=== PATIENT | female | born 1960 | race Caucasian/White ===

== ENCOUNTER 2019-04-18 13:36 | Inpatient (IN) | payer OTHER ==
--- NOTE | 2019-04-18 13:45 | PDOC ---
Rapid Medical Evaluation Time Seen by Provider: 04/18/19 13:44 Medical Evaluation: Allergies Allergy/AdvReac Type Severity Reaction Status Date / Time No Known Allergies Allergy Verified 08/29/15 08:47 04/18/19 13:44 I have performed a brief in-person evaluation of this patient. The patient presents with a chief complaint of: vaginal bleeding after starting Lovenox- recent dx of uterine CA and PE Pertinent physical exam findings: deferred I have ordered the following: labs, urine The patient will proceed to the ED for further evaluation. Discharge Disposition - Diagnosis Vaginal bleeding - Referrals - Patient Instructions - Post Discharge Activity
--- NOTE | 2019-04-18 14:56 | PDOC ---
History of Present Illness - General History Source: Patient - History of Present Illness Initial Comments: 04/18/19 14:47 58y/o F hx of uterine adenocarcinoma ,recently diagnosed P.E and ulcerative colitis s/p colon resection, presents to the ED with vaginal bleeding. She has had on/off vaginal bleeding over the last few weeks. She had a sudden increase today where she soaked a single pad in 15mins and had blood in the toilet bowl. She has had a vaginal biopsy, hysteroscopy and endometrial biopsy within the last 3 weeks. She was placed on Lovenox last week due to p.e in the left lung. she currently denies abdominal pain,constipation,chest pain or sob. 04/18/19 16:35 <Moe Jackson - Last Filed: 04/18/19 19:09> <Sandra Cain - Last Filed: 04/20/19 22:14> - General Chief Complaint: Vaginal Bleeding Stated Complaint: VAGINAL BLEEDING Time Seen by Provider: 04/18/19 13:44 Past History - Past Medical History Asthma: Yes Cardiac Disorders: Yes (MVP) COPD: No GI Disorders: Yes (COLITIS, PEPTIC ULCER) Other medical history: UTERINE CA, PE - Surgical History GI Surgery: Yes (LARGE BOWEL RESECTION) - Immunization History Immunization Up to Date: Yes - Suicide/Smoking/Psychosocial Hx Smoking History: Never smoked Hx Alcohol Use: No Drug/Substance Use Hx: No Substance Use Type: None <Moe Jackson - Last Filed: 04/18/19 19:09> <Sandra Cain - Last Filed: 04/20/19 22:14> - Past Medical History Allergies/Adverse Reactions: Allergies Allergy/AdvReac Type Severity Reaction Status Date / Time No Known Allergies Allergy Verified 04/18/19 13:44 Home Medications: Ambulatory Orders Enoxaparin Sodium [Lovenox] 60 mg SQ BID 04/18/19 Potassium Citrate [Potassium Citrate ER] 5 meq PO BID 04/18/19 Review of Systems - Review of Systems All Other Systems: Reviewed and Negative <Moe Jackson - Last Filed: 04/18/19 19:09> *Physical Exam - Vital Signs Last Vital Signs Temp Pulse Resp BP Pulse Ox 98.4 F 110 H 18 122/74 98 04/18/19 13:46 04/18/19 13:46 04/18/19 13:46 04/18/19 13:46 04/18/19 13:46 - Physical Exam General Appearance: Yes: Nourished, Appropriately Dressed, Apparent Distress Respiratory/Chest: positive: Lungs Clear, Normal Breath Sounds. negative: Respiratory Distress, Accessory Muscle Use, Labored Respiration, Rapid RR, Rales , Wheezing Cardiovascular: positive: Regular Rhythm, Regular Rate, S1, S2. negative: JVD Female Pelvic Exam: positive: vaginal bleeding, other (large clots at the vulva. vaginal vault filled with blood. cervical os not visualised.) Gastrointestinal/Abdominal: positive: Normal Bowel Sounds, Soft, Other. negative: Guarding, Rebound, Tenderness Integumentary: positive: Normal Color, Dry, Warm Neurologic: positive: Fully Oriented, Alert, Normal Response <Moe Jackson - Last Filed: 04/18/19 19:09> - Vital Signs Last Vital Signs Temp Pulse Resp BP Pulse Ox 97.9 F 97 H 18 108/64 99 04/20/19 13:43 04/20/19 13:43 04/20/19 12:00 04/20/19 13:43 04/20/19 12:00 <Sandra Cain - Last Filed: 04/20/19 22:14> ED Treatment Course - LABORATORY CBC & Chemistry Diagram: 04/18/19 14:33 04/18/19 14:33 <Moe Jackson - Last Filed: 04/18/19 19:09> - LABORATORY CBC & Chemistry Diagram: 04/20/19 13:55 04/18/19 14:33 - ADDITIONAL ORDERS Additional order review: 04/18/19 04/18/19 20:01 14:33 RBC 3.33 L 3.73 MCV 88.0 88.3 MCHC 33.4 33.3 RDW 14.5 14.3 MPV 8.5 9.3 Neutrophils % 67.7 66.7 Lymphocytes % 22.7 23.3 Monocytes % 8.2 7.7 Eosinophils % 0.9 1.1 Basophils % 0.5 1.2 - Medications Given in the ED: ED Medications Discontinued Medications Generic Name Dose Route Start Last Admin Trade Name Freq PRN Reason Stop Dose Admin Acetaminophen 650 mg 04/18/19 20:21 04/20/19 10:21 Tylenol - PO 650 mg Q6H PRN Administration FEVER Sodium Chloride 1,000 ml 04/18/19 18:17 04/18/19 18:25 Normal Saline - IV 04/18/19 18:18 1,000 ml ONCE ONE Administration <Sandra Cain - Last Filed: 04/20/19 22:14> Medical Decision Making - Medical Decision Making 04/18/19 16:08 58y/o F with endometrial adenocarcinoma, recently diagnosed PE on anticoagulation, presents to the ED with increased bleeding of 4 hrs duration. Labs Ordered/Imaging pt/ptt (12.3/33.6)within reference ranges inr= 1.04 Hgb= 11 Hct=32.9 bleeding not likely due to anti-coagulation. TVUS ordered for further evaluation. 04/18/19 18:20 Repeat vitals done: HR 108, BP 120/76. Given IV fluids 1000cc.Pt. reassessed at this time. she has soaked through 3 pads since arrival in the ED approx 3-4hrs ago. 04/18/19 18:[address] Graf contacted for further management instruction. information assoc service reached. Dr. Graf currently in a procedure will call back. <Moe Jackson - Last Filed: 04/18/19 19:09> *DC/Admit/Observation/Transfer <Moe Jackson - Last Filed: 04/18/19 19:09> - Discharge Dispostion Decision to Admit order: Yes <Sandra Cain - Last Filed: 04/20/19 22:14> Diagnosis at time of Disposition: Vaginal bleeding - Discharge Dispostion Condition at time of disposition: Fair
[2019-04-18 15:08] LABS: BASO % 1.2 % (0-2.0); EOS % 1.1 % (0-4.5); HEMATOCRIT 32.9 % (32.4-45.2); LYMPH % 23.3 % (8-40); MCH 29.4 pg (25.7-33.7); MCHC 33.3 g/dl (32.0-36.0); MEAN CELL VOLUME 88.3 fl (80-96); MEAN PLT VOLUME 9.3 fl (7.5-11.1); MONO % 7.7 % (3.8-10.2); NEUT % 66.7 % (42.8-82.8); PLATELET COUNT 387 K/MM3 (134-434); RBC 3.73 M/mm3 (3.60-5.2); RDW 14.3 % (11.6-15.6); WHITE BLOOD COUNT 8.3 K/mm3 (4.0-10.0)
[2019-04-18 15:27] LABS: INR 1.04 (0.83-1.09); PROTHROMBIN TIME (PATIENT) 12.3 SEC (9.7-13.0)
[2019-04-18 15:30] LABS: ACTIVATED PTT 33.6 SECONDS (25.2-36.5)
[2019-04-18 15:39] LABS: ALBUMIN 3.7 g/dl (3.4-5.0); BILIRUBIN,TOTAL 0.4 mg/dL (0.2-1); BLOOD UREA NITROGEN 8.1 mg/dL (7-18); CALCIUM 9.4 mg/dL (8.5-10.1); CREATININE 0.7 mg/dL (0.55-1.3); POTASSIUM 4.9 mmol/L (3.5-5.1); TOT PROT 7.5 g/dl (6.4-8.2)
--- NOTE | 2019-04-18 15:57 | PDOC ---
Documentation entered by Otilia Llanos SCRIBE, acting as scribe for Sandra Cain MD. Sandra Cain MD: This documentation has been prepared by the scribe, Otilia Llanos SCRIBE, under my direction and personally reviewed by me in its entirety. I confirm that the documentation accurately reflects all work, treatment, procedures, and medical decision making performed by me. Attending Attestation - Resident Resident Name: Moe Jackson - ED Attending Attestation I have performed the following: I have examined & evaluated the patient, The case was reviewed & discussed with the resident, I agree w/resident's findings & plan, Exceptions are as noted - HPI HPI: 04/18/19 15:08 The patient is a 58-year-old female, with a past medical history of uterine adenocarcinoma, recently diagnosed PE, and ulcerative colitis s/p colon resection, who presents to the ED with intermittent vaginal bleeding for the past few weeks. Vaginal bleeding progressively worsened today and she reports soaking through a pad every 15 minutes. Patient also notes blood in the toilet bowl when using the bathroom. The patient had a vaginal biopsy, hysteroscopy, and an endometrial biopsy performed during the past few weeks. She is currently taking Lovenox due to LT lung PE. The patient denies any fevers, chills, nausea, vomiting, diarrhea, or abdominal pain. Denies any chest pain, palpitations, or shortness of breath. Denies any urinary symptoms. Denies any weakness, dizziness, lightheadedness, or changes in strength or sensation. Allergies: NKA BROOM BUNDLER: Dr Reed - Physicial Exam PE: 04/18/19 15:09 (+)Pale-appearing, malaised, NAD, EOMI, PERRL, pale conjunctiva, anicteric; neck supple. lungs clear, +tachycardic, abdomen soft nontender. Back nontender. GONSALVES x4, no focal neuro deficits. No peripheral edema. WWP. pelvic exam by resident and team, vaginal bleeding in the vault. 04/18/19 16:53 - Medical Decision Making 04/18/19 16:57 See HPI for details. Prior notes reviewed, including admissions, discharges and consultations. Vital signs reviewed, sinus tachycardia. Vital Signs Temp Pulse Resp BP Pulse Ox 98.4 F 110 H 18 122/74 98 04/18/19 13:46 04/18/19 13:46 04/18/19 13:46 04/18/19 13:46 04/18/19 13:46 laboratory results and imaging reviewed, basic labs and lytes wnl, notable for wnl H/H given IVF, no pain. given pads to count the degree of bleeding. pelvic sono, check for retained products vs mass vs fibroid clinical call to her [facility] surgeon/oncologist repeat CBC repeat VS s/o nighttime attg Dr Sloan pending clinical reeval and dispo 04/18/19 16:58
--- NOTE | 2019-04-18 16:16 | PDOC ---
*Physical Exam - Vital Signs Last Vital Signs Temp Pulse Resp BP Pulse Ox 98.4 F 110 H 18 122/74 98 04/18/19 13:46 04/18/19 13:46 04/18/19 13:46 04/18/19 13:46 04/18/19 13:46 ED Treatment Course - LABORATORY CBC & Chemistry Diagram: 04/18/19 20:01 04/18/19 14:33 - ADDITIONAL ORDERS Additional order review: Laboratory Results 04/18/19 04/18/19 04/18/19 14:33 14:33 14:33 PT with INR 12.30 INR 1.04 PTT (Actin FS) 33.6 Sodium 139 Potassium 4.9 Chloride 106 Carbon Dioxide 25 Anion Gap 9 BUN 8.1 Creatinine 0.7 Est GFR (CKD-EPI)AfAm 109.15 Est GFR (CKD-EPI)NonAf 94.17 Random Glucose 101 Calcium 9.4 Total Bilirubin 0.4 AST 58 H ALT 37 Alkaline Phosphatase 175 H Total Protein 7.5 Albumin 3.7 Blood Type A POSITIVE Antibody Screen Negative 04/18/19 14:33 RBC 3.73 MCV 88.3 MCHC 33.3 RDW 14.3 MPV 9.3 Neutrophils % 66.7 Lymphocytes % 23.3 Monocytes % 7.7 Eosinophils % 1.1 Basophils % 1.2 - RADIOLOGY Radiology Studies Ordered: Category Date Time Status TRANSVAGINAL ULTRASOUND US [US] Stat Ultrasound 04/18/19 15:57 Ordered Medical Decision Making - Medical Decision Making 04/18/19 16:[address] Jackson (PGY-1) 58 year old female with a PMH of endometrial carcinoma and PE (February 2019 - on Lovenox) presents with worsening vaginal bleeding. Patient is s/p endometrial biopsy on Thursday with vaginal spotting that turned to wilber vaginal bleeding today. Will obtain basic labs, coags, T&S, plan for TVUS, possible CT. Reassess. Pelvic exam showed large clots on external vulva, pooling dark red blood in vaginal vault, limited visualization 2/[address] Jackson spoke w/nurse for patient's fashion journalist-onc @ [facility], Dr. Graf 04/18/19 19:22 Hb stable TVUS negative for abscess, free pelvic fluid, showed endometrial hyperplasia c/ w endometrial cancer. During course of admission patient continued to c/o vaginal bleeding. Bleeding is intermittent w/large clots. Patient and family @ bedside concerned that they will not be able to manage patient's vaginal bleeding at home. Clinical concern for dropping Hb given amount of blood observed both on pelvic exam and during course of evaluation in ED. Case d/w Dr. Ham, agrees w/admission - requests drafter castings consult prior to admission. Case d/w Dr. Conklni (OB-Controlled Area Checker) notes patient not a candidate for hormonal therapy to stop vaginal bleed 2/2 to patient's underlying endometrial carcinoma. Patient admitted to Dr. Ham; consult placed to OB-Controlled Area Checker. Pending stable Hb patient likely to be discharged within 24 hours and follow-up with her Controlled Area Checker Onc as previously scheduled. *DC/Admit/Observation/Transfer Diagnosis at time of Disposition: Vaginal bleeding - Referrals - Patient Instructions - Post Discharge Activity
[2019-04-18] MEDS ORDERED: SODIUM CHLORIDE 0.9% 500 ML INFUS.BAG IV ONE (18:17)
--- NOTE | 2019-04-18 19:10 | PDOC ---
*Physical Exam - Vital Signs Last Vital Signs Temp Pulse Resp BP Pulse Ox 98.4 F 108 H 18 120/76 98 04/18/19 13:46 04/18/19 18:11 04/18/19 13:46 04/18/19 18:11 04/18/19 13:46 ED Treatment Course - LABORATORY CBC & Chemistry Diagram: 04/19/19 06:20 04/18/19 14:33 - ADDITIONAL ORDERS Additional order review: Laboratory Results 04/18/19 04/18/19 04/18/19 14:33 14:33 14:33 PT with INR 12.30 INR 1.04 PTT (Actin FS) 33.6 Sodium 139 Potassium 4.9 Chloride 106 Carbon Dioxide 25 Anion Gap 9 BUN 8.1 Creatinine 0.7 Est GFR (CKD-EPI)AfAm 109.15 Est GFR (CKD-EPI)NonAf 94.17 Random Glucose 101 Calcium 9.4 Total Bilirubin 0.4 AST 58 H ALT 37 Alkaline Phosphatase 175 H Total Protein 7.5 Albumin 3.7 Blood Type A POSITIVE Antibody Screen Negative 04/18/19 14:33 RBC 3.73 MCV 88.3 MCHC 33.3 RDW 14.3 MPV 9.3 Neutrophils % 66.7 Lymphocytes % 23.3 Monocytes % 7.7 Eosinophils % 1.1 Basophils % 1.2 - Medications Given in the ED: ED Medications Discontinued Medications Generic Name Dose Route Start Last Admin Trade Name Freq PRN Reason Stop Dose Admin Sodium Chloride 1,000 ml 04/18/19 18:17 04/18/19 18:25 Normal Saline - IV 04/18/19 18:18 1,000 ml ONCE ONE Administration Medical Decision Making - Medical Decision Making 04/18/19 19:22 Sign out received from Dr. Jackson. Case discussed with certified personal chef Telecom Analyst. They are on board with admission for acute vaginal bleeding on lovenox with active endometrial CA. Plan to admit, call made to admitting. *DC/Admit/Observation/Transfer Diagnosis at time of Disposition: Vaginal bleeding - Referrals - Patient Instructions - Post Discharge Activity
--- NOTE | 2019-04-18 20:20 | HP ---
Admitting History and Physical - Primary Care Physician PCP: Nida Ham - Admission History of Present Illness: 58-year-old female, with a past medical history of uterine adenocarcinoma, recently diagnosed PE, and ulcerative colitis s/p colon resection, who presents to the ED with intermittent vaginal bleeding for the past few weeks. Vaginal bleeding progressively worsened today and she reports soaking through a pad every 15 minutes. Patient also notes blood in the toilet bowl when using the bathroom. The patient had a vaginal biopsy, hysteroscopy, and an endometrial biopsy performed during the past few weeks. She is currently taking Lovenox due to LT lung PE. patient had a uterine biopsy on thursday - Past Medical History Pulmonary: Yes: Pulmonary Embolus Gastrointestinal: Yes: Ulcerative Colitis Heme/Onc: Yes: Other (uterine adeno ca) - Smoking History Smoking history: Never smoked - Alcohol/Substance Use Hx Alcohol Use: No Home Medications - Allergies Allergies/Adverse Reactions: Allergies Allergy/AdvReac Type Severity Reaction Status Date / Time No Known Allergies Allergy Verified 04/18/19 13:44 - Home Medications Home Medications: Ambulatory Orders Enoxaparin Sodium [Lovenox] 60 mg SQ BID 04/18/19 Potassium Citrate [Potassium Citrate ER] 5 meq PO BID 04/18/19 Physical Examination Vital Signs: Vital Signs Temperature 98.4 F 04/18/19 13:46 Pulse Rate 108 H 04/18/19 18:11 Respiratory Rate 18 04/18/19 13:46 Blood Pressure 120/76 04/18/19 18:11 O2 Sat by Pulse Oximetry (%) 98 04/18/19 13:46 Constitutional: Yes: Calm HENT: Yes: Atraumatic Neck: Yes: Supple Cardiovascular: Yes: Regular Rate and Rhythm Respiratory: Yes: CTA Bilaterally Gastrointestinal: Yes: Normal Bowel Sounds Extremities: Yes: WNL Edema: No Peripheral Pulses WNL: Yes Neurological: Yes: Alert, Oriented Labs: CBC, BMP 04/18/19 14:33 04/18/19 14:33 Problem List - Problems (1) Uterine cancer Assessment/Plan: has doctors at [facility] Code(s): C55 - MALIGNANT NEOPLASM OF UTERUS, PART UNSPECIFIED (2) Vaginal bleeding Assessment/Plan: monitor h/h transfuse if needed color buffer consult done Code(s): N93.9 - ABNORMAL UTERINE AND VAGINAL BLEEDING, UNSPECIFIED (3) Pulmonary embolus Assessment/Plan: on lovenox...hold for now Code(s): I26.99 - OTHER PULMONARY EMBOLISM WITHOUT ACUTE COR PULMONALE Assessment/Plan Laboratory Tests 04/18/19 04/18/19 04/18/19 14:33 14:33 14:33 WBC 8.3 RBC 3.73 Hgb 11.0 Hct 32.9 MCV 88.3 MCH 29.4 MCHC 33.3 RDW 14.3 Plt Count 387 MPV 9.3 Absolute Neuts (auto) 5.6 Neutrophils % 66.7 Lymphocytes % 23.3 Monocytes % 7.7 Eosinophils % 1.1 Basophils % 1.2 Nucleated RBC % 0 PT with INR INR PTT (Actin FS) Sodium 139 Potassium 4.9 Chloride 106 Carbon Dioxide 25 Anion Gap 9 BUN 8.1 Creatinine 0.7 Est GFR (CKD-EPI)AfAm 109.15 Est GFR (CKD-EPI)NonAf 94.17 Random Glucose 101 Calcium 9.4 Total Bilirubin 0.4 AST 58 H ALT 37 Alkaline Phosphatase 175 H Total Protein 7.5 Albumin 3.7 Blood Type A POSITIVE Antibody Screen Negative 04/18/19 14:33 WBC RBC Hgb Hct MCV MCH MCHC RDW Plt Count MPV Absolute Neuts (auto) Neutrophils % Lymphocytes % Monocytes % Eosinophils % Basophils % Nucleated RBC % PT with INR 12.30 INR 1.04 PTT (Actin FS) 33.6 Sodium Potassium Chloride Carbon Dioxide Anion Gap BUN Creatinine Est GFR (CKD-EPI)AfAm Est GFR (CKD-EPI)NonAf Random Glucose Calcium Total Bilirubin AST ALT Alkaline Phosphatase Total Protein Albumin Blood Type Antibody Screen Active Medications Generic Name Dose Route Start Last Admin Trade Name Freq PRN Reason Stop Dose Admin Acetaminophen 650 mg 04/18/19 20:21 Tylenol - PO Q6H PRN FEVER
[2019-04-18 20:33] LABS: BASO % 0.5 % (0-2.0); EOS % 0.9 % (0-4.5); HEMATOCRIT 29.3 % (32.4-45.2); HEMOGLOBIN 9.8 GM/dL (10.7-15.3); LYMPH % 22.7 % (8-40); MCH 29.4 pg (25.7-33.7); MCHC 33.4 g/dl (32.0-36.0); MEAN PLT VOLUME 8.5 fl (7.5-11.1); MONO % 8.2 % (3.8-10.2); NEUT % 67.7 % (42.8-82.8); PLATELET COUNT 350 K/MM3 (134-434); RBC 3.33 M/mm3 (3.60-5.2); RDW 14.5 % (11.6-15.6); WHITE BLOOD COUNT 8.5 K/mm3 (4.0-10.0)
[2019-04-18 23:12] VITALS: BMI 24.0
[2019-04-19 07:28] LABS: BASO % 0.8 % (0-2.0); EOS % 1.7 % (0-4.5); HEMATOCRIT 27.6 % (32.4-45.2); HEMOGLOBIN 9.2 GM/dL (10.7-15.3); LYMPH % 23.7 % (8-40); MCH 29.5 pg (25.7-33.7); MCHC 33.4 g/dl (32.0-36.0); MEAN CELL VOLUME 88.5 fl (80-96); MEAN PLT VOLUME 8.8 fl (7.5-11.1); MONO % 9.6 % (3.8-10.2); NEUT % 64.2 % (42.8-82.8); PLATELET COUNT 369 K/MM3 (134-434); RBC 3.12 M/mm3 (3.60-5.2); RDW 14.4 % (11.6-15.6); WHITE BLOOD COUNT 6.9 K/mm3 (4.0-10.0)
[2019-04-19] MEDS: ACETAMINOPHEN 325 MG TABLET (FP) PO PRN ×2 (07:45→16:57)
--- NOTE | 2019-04-19 14:02 | CONSULT ---
Consultation: CONSULT REQUEST: Heme/Onc HISTORY OF PRESENT ILLNESS: Patient is a 58 yo F with a PMHX of endometrial ca stage 3 (dx a few weeks ago) , PE (Lovenox 03/16), UC (s/p colectomy 1986), presents with worsening vaginal bleeding over the last few days. She said since starting Lovenox, she has been spotting. But over the last few days she was soaking through a pad every 15 minutes, which prompted her to go to the ED. Her hgb in the ER was 11 and went down to 9.2 this AM. Patient says she feels better today. She said she isn't bleeding as much today since the Lovenox was stopped. She only has some minor spotting. Patient is seeing Dr. Graf (SEATING CAPTAIN-ONC) at [place], who is following her. She also says she has an appointment with Dr. Nichelle Arthur for tomorrow. PMHX: per hpi, thallasemia minor (unknown), MVP Social hx: Denies tobacco, alcohol Occupation: Teacher Family hx: maternal grandfather Lung cancer (smoker) Surgeries: s/p cystoscopy, D&C, colectomy in 1986 Background: libyan, telugu Last mammogram 1.5 years ago REVIEW OF SYSTEMS: CONSTITUTIONAL: Absent: fever, chills, diaphoresis, generalized weakness, malaise, loss of appetite, weight change HEENT: Absent: rhinorrhea, nasal congestion, throat pain, throat swelling, difficulty swallowing, mouth swelling, ear pain, eye pain, visual changes CARDIOVASCULAR: Absent: chest pain, syncope, palpitations, irregular heart rate, lightheadedness , peripheral edema RESPIRATORY: Absent: cough, shortness of breath, dyspnea with exertion, orthopnea, wheezing, stridor, hemoptysis GASTROINTESTINAL: Absent: abdominal pain, abdominal distension, nausea, vomiting, diarrhea, constipation, melena, hematochezia GENITOURINARY: Absent: dysuria, frequency, urgency, hesitancy, flank pain, genital pain HEMATOLOGIC/IMMUNOLOGIC: Absent: easy bleeding, easy bruising, lymphadenopathy, frequent infections PHYSICAL EXAMINATION Vital Signs - 24 hr 04/18/19 04/18/19 04/18/19 18:11 20:22 22:24 Temperature 98.8 F Pulse Rate 96 H Pulse Rate [ 108 H 88 Apical] Respiratory 18 18 Rate Blood Pressure 140/62 Blood Pressure 120/76 118/72 [Right Arm] O2 Sat by Pulse 97 Oximetry (%) GENERAL: anxious, a/o x 3, in nad EYES: Pupils equal, round and reactive to light, extraocular movements intact EARS, NOSE, THROAT: oropharynx clear without exudates. NECK: supple without lymphadenopathy, JVD, or masses. LUNGS: Breath sounds equal, clear to auscultation bilaterally. HEART: Regular rate and rhythm, normal S1 and S2 without murmur, rub or gallop. ABDOMEN: soft, vertical scar above umbilicus, no tenderness to palpation. +BS LOWER EXTREMITIES: 2+ pulses, warm, well-perfused. No calf tenderness. No peripheral edema. NEUROLOGICAL: Cranial nerves II-XII intact. Normal speech. BREAST: no palpable masses, no nipple discharge. Laboratory Results - last 24 hr 04/18/19 04/18/19 04/18/19 14:33 14:33 14:33 WBC 8.3 RBC 3.73 Hgb 11.0 Hct 32.9 MCV 88.3 MCH 29.4 MCHC 33.3 RDW 14.3 Plt Count 387 MPV 9.3 Absolute Neuts (auto) 5.6 Neutrophils % 66.7 Lymphocytes % 23.3 Monocytes % 7.7 Eosinophils % 1.1 Basophils % 1.2 Nucleated RBC % 0 PT with INR INR PTT (Actin FS) Sodium 139 Potassium 4.9 Chloride 106 Carbon Dioxide 25 Anion Gap 9 BUN 8.1 Creatinine 0.7 Est GFR (CKD-EPI)AfAm 109.15 Est GFR (CKD-EPI)NonAf 94.17 Random Glucose 101 Calcium 9.4 Total Bilirubin 0.4 AST 58 H ALT 37 Alkaline Phosphatase 175 H Total Protein 7.5 Albumin 3.7 Blood Type A POSITIVE Antibody Screen Negative 04/18/19 04/18/19 04/19/19 14:33 20:01 06:20 WBC 8.5 6.9 RBC 3.33 L 3.12 L Hgb 9.8 L 9.2 L Hct 29.3 L 27.6 L MCV 88.0 88.5 MCH 29.4 29.5 MCHC 33.4 33.4 RDW 14.5 14.4 Plt Count 350 369 MPV 8.5 8.8 Absolute Neuts (auto) 5.8 4.4 Neutrophils % 67.7 64.2 Lymphocytes % 22.7 23.7 Monocytes % 8.2 9.6 Eosinophils % 0.9 1.7 D Basophils % 0.5 0.8 Nucleated RBC % 0 0 PT with INR 12.30 INR 1.04 PTT (Actin FS) 33.6 Sodium Potassium Chloride Carbon Dioxide Anion Gap BUN Creatinine Est GFR (CKD-EPI)AfAm Est GFR (CKD-EPI)NonAf Random Glucose Calcium Total Bilirubin AST ALT Alkaline Phosphatase Total Protein Albumin Blood Type Antibody Screen ASSESSMENT/PLAN: #Endometrial Ca Stage 3 #Vaginal bleeding #Hx of PE -hold lovenox until hgb stable -awaiting OBGYN reccs to see if there are any options to stop bleeding. -Once H&H stable, and bleeding under control, patient will follow up with her primary Shipping/Receiving Manager-ONC and oncology team for outpatient workup of malignancy. -consider local GYNONC consult. -monitor H&H. Transfuse between 7-8 gr/dl Dispo: We will continue to follow the patient. Thank you for this consultative opportunity. Visit type - Emergency Visit Emergency Visit: Yes ED Registration Date: 04/18/19 Care time: The patient presented to the Emergency Department on the above date and was hospitalized for further evaluation of their emergent condition. - New Patient This patient is new to me today: Yes Date on this admission: 04/19/19 - Critical Care Critical Care patient: No ATTENDING PHYSICIAN STATEMENT I saw and evaluated the patient. I reviewed the resident's note and discussed the case with the resident. I agree with the resident's findings and plan as documented. SUBJECTIVE: OBJECTIVE: ASSESSMENT AND PLAN:
--- NOTE | 2019-04-19 16:06 | PN ---
Progress Note, Physician - Current Medication List Current Medications: Active Medications Acetaminophen (Tylenol -) 650 mg PO Q6H PRN PRN Reason: FEVER Last Admin: 04/19/19 07:45 Dose: 650 mg - Objective Vital Signs: Vital Signs Temperature 97.9 F 04/19/19 14:40 Pulse Rate 91 H 04/19/19 14:40 Respiratory Rate 18 04/19/19 14:40 Blood Pressure 123/78 04/19/19 14:40 O2 Sat by Pulse Oximetry (%) 99 04/19/19 12:00 Constitutional: Yes: No Distress HENT: Yes: Atraumatic Neck: Yes: Supple Cardiovascular: Yes: Regular Rate and Rhythm Respiratory: Yes: CTA Bilaterally Gastrointestinal: Yes: Normal Bowel Sounds Extremities: Yes: WNL Edema: No Peripheral Pulses WNL: Yes Neurological: Yes: Alert, Oriented Labs: CBC, BMP 04/19/19 06:20 04/18/19 14:33 INR, PTT INR 1.04 (0.83-1.09) 04/18/19 14:33 Problem List - Problems (1) Uterine cancer Assessment/Plan: has doctors at [facility] consult dr hess Code(s): C55 - MALIGNANT NEOPLASM OF UTERUS, PART UNSPECIFIED (2) Vaginal bleeding Assessment/Plan: monitor h/h transfuse if needed vehicle damage appraiser consult done Code(s): N93.9 - ABNORMAL UTERINE AND VAGINAL BLEEDING, UNSPECIFIED (3) Pulmonary embolus Assessment/Plan: on lovenox...hold for now Code(s): I26.99 - OTHER PULMONARY EMBOLISM WITHOUT ACUTE COR PULMONALE Assessment/Plan discuss care plan with sister who was at bed side today and day of admission
[2019-04-19 20:26] LABS: BASO % 0.8 % (0-2.0); EOS % 2.2 % (0-4.5); HEMATOCRIT 28.4 % (32.4-45.2); HEMOGLOBIN 9.5 GM/dL (10.7-15.3); LYMPH % 24.1 % (8-40); MCH 29.6 pg (25.7-33.7); MCHC 33.3 g/dl (32.0-36.0); MEAN CELL VOLUME 88.8 fl (80-96); MEAN PLT VOLUME 8.7 fl (7.5-11.1); MONO % 9.2 % (3.8-10.2); NEUT % 63.7 % (42.8-82.8); PLATELET COUNT 337 K/MM3 (134-434); RDW 14.6 % (11.6-15.6); WHITE BLOOD COUNT 7.9 K/mm3 (4.0-10.0)
--- NOTE | 2019-04-19 21:37 | PN ---
Teaching Attending Note Name of Resident: Lei Gil ATTENDING PHYSICIAN STATEMENT I saw and evaluated the patient. I reviewed the resident's note and discussed the case with the resident. I agree with the resident's findings and plan as documented. SUBJECTIVE: 58 y/o lady with PMH of UC s/p colectomy 1986, recently diagnosed with uterine adenocarcinoma, recent PE, presented to the ER with intermittent vaginal bleeding which worsened requiring to change vaginal pads every 15 minutes. Her Hb dropped from 11 to 9.2 in AM. She denies acute bleeding during my visit but acknowledges to abdominal cramping. 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 1.Metrorrhagia secondary to Uterine Adenocarcinoma: Transfuse to keep hemoglobin between 7-8 gr/dL. Consult Gynecology for local bleeding control. Once stable patient should resume [place] [facility] [place] oncology team. If interested in consider care, consider consultation with our local [facility]-Onc strategy planning consultant. 2. Thank you for this consultation
[2019-04-20] MEDS: ACETAMINOPHEN 325 MG TABLET (FP) PO PRN (10:21)
--- NOTE | 2019-04-20 12:39 | DS ---
Physical Examination Vital Signs: Vital Signs Temperature 98.2 F 04/20/19 06:21 Pulse Rate 69 04/20/19 06:21 Respiratory Rate 20 04/20/19 06:21 Blood Pressure 103/52 L 04/20/19 06:21 O2 Sat by Pulse Oximetry (%) 99 04/19/19 20:00 Labs: CBC, BMP 04/19/19 20:00 04/18/19 14:33 Discharge Summary Reason For Visit: VAGINAL BLEDDING Current Active Problems Pulmonary embolus (Acute) Uterine cancer (Acute) Vaginal bleeding (Acute) - Instructions Diet, Activity, Other Instructions: PATIENT SHOULD RESUME CARE WITH HER OBGYN-ONCOLOGY TEAM AT [facility] [place] SHOULD ALSO ASK HER PRIMARY TEAM ABOUT LOVENOX Disposition: HOME - Home Medications Comprehensive Discharge Medication List: Ambulatory Orders Enoxaparin Sodium [Lovenox] 60 mg SQ BID 04/18/19 Potassium Citrate [Potassium Citrate ER] 5 meq PO BID 04/18/19 ONCOLOGY NOTE REVIEWED PATIENT SHOULD SEE HER PHARMACEUTICAL SPECIALTY REPRESENTATIVE-ONC TEAM AT [facility] [place] H/H STABLE DC HOME Laboratory Tests 04/18/19 04/18/19 04/18/19 14:33 14:33 14:33 WBC 8.3 RBC 3.73 Hgb 11.0 Hct 32.9 MCV 88.3 MCH 29.4 MCHC 33.3 RDW 14.3 Plt Count 387 MPV 9.3 Absolute Neuts (auto) 5.6 Neutrophils % 66.7 Lymphocytes % 23.3 Monocytes % 7.7 Eosinophils % 1.1 Basophils % 1.2 Nucleated RBC % 0 PT with INR INR PTT (Actin FS) Sodium 139 Potassium 4.9 Chloride 106 Carbon Dioxide 25 Anion Gap 9 BUN 8.1 Creatinine 0.7 Est GFR (CKD-EPI)AfAm 109.15 Est GFR (CKD-EPI)NonAf 94.17 Random Glucose 101 Calcium 9.4 Total Bilirubin 0.4 AST 58 H ALT 37 Alkaline Phosphatase 175 H Total Protein 7.5 Albumin 3.7 Blood Type A POSITIVE Antibody Screen Negative 04/18/19 04/18/19 04/19/19 14:33 20:01 06:20 WBC 8.5 6.9 RBC 3.33 L 3.12 L Hgb 9.8 L 9.2 L Hct 29.3 L 27.6 L MCV 88.0 88.5 MCH 29.4 29.5 MCHC 33.4 33.4 RDW 14.5 14.4 Plt Count 350 369 MPV 8.5 8.8 Absolute Neuts (auto) 5.8 4.4 Neutrophils % 67.7 64.2 Lymphocytes % 22.7 23.7 Monocytes % 8.2 9.6 Eosinophils % 0.9 1.7 D Basophils % 0.5 0.8 Nucleated RBC % 0 0 PT with INR 12.30 INR 1.04 PTT (Actin FS) 33.6 Sodium Potassium Chloride Carbon Dioxide Anion Gap BUN Creatinine Est GFR (CKD-EPI)AfAm Est GFR (CKD-EPI)NonAf Random Glucose Calcium Total Bilirubin AST ALT Alkaline Phosphatase Total Protein Albumin Blood Type Antibody Screen 04/19/19 04/19/19 04/20/19 09:52 20:00 13:55 WBC 7.9 10.6 H RBC 3.20 L 3.26 L Hgb 9.5 L 9.7 L Hct 28.4 L 28.8 L MCV 88.8 88.4 MCH 29.6 29.6 MCHC 33.3 33.5 RDW 14.6 14.6 Plt Count 337 355 MPV 8.7 8.3 Absolute Neuts (auto) 5.0 7.8 Neutrophils % 63.7 73.4 Lymphocytes % 24.1 17.6 D Monocytes % 9.2 7.1 Eosinophils % 2.2 1.3 Basophils % 0.8 0.6 Nucleated RBC % 0 0 PT with INR INR PTT (Actin FS) Sodium Potassium Chloride Carbon Dioxide Anion Gap BUN Creatinine Est GFR (CKD-EPI)AfAm Est GFR (CKD-EPI)NonAf Random Glucose Calcium Total Bilirubin AST ALT Alkaline Phosphatase Total Protein Albumin Blood Type A POSITIVE Antibody Screen
--- NOTE | 2019-04-20 13:08 | EKG ---
Test Reason : Blood Pressure : / mmHG Vent. Rate : 086 BPM Atrial Rate : 086 BPM P-R Int : 156 ms QRS Dur : 076 ms QT Int : 378 ms P-R-T Axes : 056 -09 034 degrees QTc Int : 452 ms NORMAL SINUS RHYTHM LOW VOLTAGE QRS CANNOT RULE OUT ANTERIOR INFARCT , AGE UNDETERMINED ABNORMAL ECG NO PREVIOUS ECGS AVAILABLE Confirmed by BELLO ROBERTS MD ([id number]) on 04/20/2019 1:08:15 PM Referred By: Confirmed By:BELLO ROBERTS MD
[2019-04-20 13:44] VITALS: BP 108/64; PULSE 97; TEMP 97.9
[2019-04-20 14:04] LABS: BASO % 0.6 % (0-2.0); EOS % 1.3 % (0-4.5); HEMATOCRIT 28.8 % (32.4-45.2); HEMOGLOBIN 9.7 GM/dL (10.7-15.3); LYMPH % 17.6 % (8-40); MCH 29.6 pg (25.7-33.7); MCHC 33.5 g/dl (32.0-36.0); MEAN CELL VOLUME 88.4 fl (80-96); MEAN PLT VOLUME 8.3 fl (7.5-11.1); MONO % 7.1 % (3.8-10.2); NEUT % 73.4 % (42.8-82.8); PLATELET COUNT 355 K/MM3 (134-434); RBC 3.26 M/mm3 (3.60-5.2); RDW 14.6 % (11.6-15.6); WHITE BLOOD COUNT 10.6 K/mm3 (4.0-10.0)
== END 2019-04-20 17:36 | disposition home or self-care (01) | DRG 530 ==
LOC: JER 13:36 → JERBED 19:30 → INTOOBSV 19:30 → J6S 20:31 → OBSVTOIN 22:24
PROVIDERS: ADMIT Internal Medicine; ATTEND Internal Medicine
DX: C55 Malignant neoplasm of uterus, part unspecified (principal); I26.99 Other pulmonary embolism without acute cor pulmonale; D68.32 Hemorrhagic disorder due to extrinsic circulating anticoagulants; D57.40 Sickle-cell thalassemia without crisis; N85.00 Endometrial hyperplasia, unspecified; N93.9 Abnormal uterine and vaginal bleeding, unspecified; Z79.01 Long term (current) use of anticoagulants; I34.1 Nonrheumatic mitral (valve) prolapse; R53.81 Other malaise; J45.909 Unspecified asthma, uncomplicated; Z90.49 Acquired absence of other specified parts of digestive tract
CPT/HCPCS: 36415; 76830-TC; 80053; 85025; 85610; 85730; 86850; 86900; 86901; 93005; 93010; 99284-25; G0378